=== PATIENT | female | born 1995 | race Asian ===

== ENCOUNTER 2023-03-30 16:36 | Inpatient (IN) | payer MEDICAID ==
[~2023-03-30] VITALS: Ht 157.5 cm; Wt 53.0 kg
[2023-03-30] MEDS ORDERED: TRAZ-252 PO (18:10)
[2023-03-30] MEDS ORDERED: LORazepam 2 MG TABLET PO PRN (20:30)
[2023-03-30] MEDS ORDERED: HALOPERIDOL 5 MG TABLET PO PRN (20:30)
[2023-03-30 21:34] VITALS: BP 134/75; PULSE 86; RESP 18; TEMP 98.1; O2SAT 99
[2023-03-30] MEDS: ZOLPIDEM TARTRATE 10 MG TABLET PO PRN (22:02)
[2023-03-31 07:58] LABS: BASOPHILS % (AUTO) 0.6 % (0.0-2.0); HEMATOCRIT 45.4 % (36-46); HEMOGLOBIN 15.2 g/dL (12.0-16.0); LYMPHOCYTES # (AUTO) 2.7 K/uL (1.0-4.8); LYMPHOCYTES % (AUTO) 31.3 % (22.0-44.0); MEAN CORPUSCULAR HEMOGLOBIN 29.7 pg (26.0-34.0); MEAN CORPUSCULAR HGB CONC 33.5 G/dL (31.0-37.0); MEAN CORPUSCULAR VOLUME 89 fL (80-100); MONOCYTES # (AUTO) 0.7 K/uL (0.1-1.0); MONOCYTES % (AUTO) 7.9 % (2.0-9.0); NEUTROPHILS % (AUTO) 58.2 % (40.0-70.0); PLATELET COUNT (AUTO) 298 K/uL (150-450); RED BLOOD CELL COUNT(AUTO) 5.12 MIL/uL (4.00-5.20)
[2023-03-31 08:25] VITALS: BP 114/80; PULSE 97; RESP 17; TEMP 98; O2SAT 98
[2023-03-31 08:29] LABS: HEMOGLOBIN A1C 5.3 % (3.8-5.6)
[2023-03-31 08:32] LABS: ALANINE AMINOTRANSFERASE 12 U/L (12-78); ALBUMIN 3.9 g/dL (3.4-5.0); ALKALINE PHOSPHATASE 52 U/L (46-116); ANION GAP 9 mmol/L (8-16); ASPARTATE AMINOTRANSFERASE 7 U/L (15-37); BILIRUBIN,TOTAL 0.4 mg/dL (0.1-1.0); CALCIUM, TOTAL 9.3 mg/dL (8.8-10.5); CARBON DIOXIDE 29 mmol/L (22-29); CHLORIDE 103 mmol/L (98-107); CHOL/HDL RATIO 2.2 (3.9-5.7); CHOLESTEROL 144 mg/dL (131-200); CREATININE 0.76 mg/dL (0.60-1.30); GLOMERULAR FILTR. RATE CALC > 60 mL/min (>60); GLUCOSE,RANDOM 100 mg/dL (70-110); HCG,QUANTITATIVE < 1 mIU/mL (0-6); HDL CHOLESTEROL 65 mg/dL (40-60); LDL CHOL (CALC.) 71 mg/dL (0-130); POTASSIUM 3.9 mmol/L (3.5-5.1); SODIUM SERUM 141 mmol/L (136-145); THYROID STIMULATING HORMONE 1.29 uIU/mL (0.36-3.74); TOTAL PROTEIN, SERUM 7.8 g/dL (6.4-8.2); TRIGLYCERIDES 40 mg/dL (15-150)
[2023-03-31] MEDS: RisperiDONE 1 MG TABLET PO SCH (17:10)
[2023-03-31 20:27] VITALS: BP 130/84; PULSE 100; RESP 17; TEMP 98.1; O2SAT 98
[2023-03-31] MEDS ORDERED: ACETAMINOPHEN 325 MG TABLET PO PRN (21:30)
[2023-03-31] MEDS ORDERED: BACITRACIN 28 GM OINTMENT TP PRN (21:30)
[2023-03-31] MEDS ORDERED: PETROLATUM,WHITE 28 GM JELLY TP PRN (21:30)
[2023-03-31] MEDS ORDERED: MAGNESIUM HYDROXIDE SUSPENSION 30 ML UDCUP PO PRN (21:30)
[2023-03-31] MEDS ORDERED: MAG HYDROX/AL HYDROX/SIMETH ES 30 ML SUSPENSION UDCUP PO PRN (21:30)
[2023-03-31] MEDS ORDERED: OMEPRAZOLE 20 MG CAPSULE PO PRN (21:30)
[2023-03-31] MEDS ORDERED: IBUPROFEN 600 MG TABLET PO PRN (21:30)
[2023-03-31] MEDS ORDERED: BENZOCAINE/MENTHOL LOZENGE PO PRN (21:30)
[2023-03-31] MEDS ORDERED: CloNIDine HCL 0.1 MG TABLET PO PRN (21:30)
[2023-03-31] MEDS ORDERED: LOPERAMIDE HCL 2 MG CAPSULE PO PRN (21:30)
[2023-03-31] MEDS ORDERED: DOCUSATE SODIUM 100 MG CAPSULE PO PRN (21:30)
[2023-03-31] MEDS ORDERED: ALBUTEROL SULFATE HFA 90 MCG/PUFF 8 GM INHALER IH PRN (21:30)
[2023-03-31] MEDS ORDERED: ONDANSETRON HCL 4 MG TABLET PO PRN (21:30)
[2023-04-01 08:27] VITALS: BP 116/70; PULSE 82; RESP 17; TEMP 97.7; O2SAT 98
[2023-04-01] MEDS: RisperiDONE 1 MG TABLET PO SCH ×2 (09:06→16:37)
[2023-04-01 20:17] VITALS: BP 110/85; PULSE 97; RESP 18; TEMP 97.7; O2SAT 98
[2023-04-01] MEDS: ZOLPIDEM TARTRATE 10 MG TABLET PO PRN (22:15)
[2023-04-02 08:20] VITALS: BP 131/70; PULSE 101; RESP 17; TEMP 98.5
[2023-04-02] MEDS: RisperiDONE 1 MG TABLET PO SCH ×2 (09:10→16:33)
[2023-04-02] MEDS: ZOLPIDEM TARTRATE 10 MG TABLET PO PRN (20:52)
[2023-04-02 21:00] VITALS: BP 135/79; PULSE 100; RESP 18; TEMP 98; O2SAT 98
[2023-04-03 08:15] VITALS: BP 115/78; PULSE 105; RESP 18; TEMP 97.8
[2023-04-03] MEDS: RisperiDONE 1 MG TABLET PO SCH (08:38)
[2023-04-03 08:57] VITALS: PULSE 96; O2SAT 99
== END 2023-04-03 14:49 | disposition home or self-care (01) | DRG 750 ==
LOC: B2S 20:25
PROVIDERS: ADMIT Psychiatry & Neurology Psychiatry; ATTEND Psychiatry & Neurology Psychiatry
DX: F25.9 Schizoaffective disorder, unspecified (principal); F12.10 Cannabis abuse, uncomplicated; F41.9 Anxiety disorder, unspecified; G47.00 Insomnia, unspecified; G89.29 Other chronic pain; K59.00 Constipation, unspecified; Z79.899 Other long term (current) drug therapy
CPT/HCPCS: 80053; 80061; 83036; 84443; 84702; 85025